=== PATIENT | male | born 1995 | race Asian ===

== ENCOUNTER 2017-10-11 20:07 | Emergency (ER) | payer OTHER ==
[~2017-10-11] VITALS: Ht 172.7 cm; Wt 63.5 kg
[2017-10-11 20:42] VITALS: Ht 172.7 cm; Wt 63.5 kg
[2017-10-12 01:26] VITALS: BP 117/73
== END 2017-10-12 01:26 | disposition home or self-care (01) ==
LOC: EDBD 20:07 → ED 20:07
DX: J11.1 Influenza due to unidentified influenza virus with other respiratory manifestations (principal)
CPT/HCPCS: 87804